=== PATIENT | female | born 1970 | race Caucasian/White ===

== ENCOUNTER → 2017-06-27 | Outpatient (CLI) | payer OTHER ==
[~2017-06-27] MED LIST: ALPR-475 PO; OMEP-110 PO; SUCR1TAB PO
[2017-06-27 14:57] LABS: HEMATOCRIT 38.3 % (34.6-47.8); WHITE BLOOD COUNT 9.3 x10^3/uL (3.4-10)
[2017-06-27 15:15] LABS: ASPARTATE AMINO TRANSFERASE 16 U/L (15-37); BLOOD UREA NITROGEN 13 mg/dL (7-18)
== END | disposition home or self-care (01) ==
LOC: STAR 13:44
PROVIDERS: ATTEND Surgery
DX: Z01.818 Encounter for other preprocedural examination (principal); M51.34 Other intervertebral disc degeneration, thoracic region; R94.31 Abnormal electrocardiogram [ECG] [EKG]; K80.20 Calculus of gallbladder without cholecystitis without obstruction; Z90.49 Acquired absence of other specified parts of digestive tract
CPT/HCPCS: 36415; 71020; 80053; 85025; 93005

== ENCOUNTER 2017-07-04 09:07 | Day surgery (SDC) | payer OTHER ==
[~2017-07-04] VITALS: Ht 162.6 cm; Wt 84.8 kg
[~2017-07-04 09:07] MED LIST changes: +BUPIVACAINE/PF 0.5% ONE; +DEXAMETHASONE 4 MG/ML, 1ML ONE; +FENTANYL PF 100 MCG/2ML ONE; +GLYCOPYRROLATE 0.4 MG/2 ML, 2ML ONE; +MIDAZOLAM 1 MG/ML, 2ML ONE; +NEOSTIGMINE 1 MG/ML, 10ML ONE; +ONDANSETRON 2MG/ML, 2ML ONE; +PROPOFOL 10 MG/ML, 20ML ONE; +ROCURONIUM 10 MG/ML,10ML ONE
[2017-07-04 09:34] VITALS: BP 130/85
[2017-07-04] MEDS ORDERED: LACTATED RINGERS 1,000 ML IV SCH (09:39)
[2017-07-04] MEDS ORDERED: CEFOTETAN 1 GM ONE (10:27)
[2017-07-04] MEDS ORDERED: LABETALOL 5MG/ML, 20ML IV PRN (10:30)
[2017-07-04] MEDS ORDERED: hydrALAzine 20 MG/ML, 1ML IV PRN (10:30)
[2017-07-04] MEDS ORDERED: PROMETHAZINE 25 MG/ML, 1ML IV PRN (10:30)
[2017-07-04] MEDS ORDERED: ACETAMINOPHEN 325 MG TABLET PO PRN (10:30)
[2017-07-04] MEDS ORDERED: ONDANSETRON 2MG/ML, 2ML IVPush PRN (10:30)
[2017-07-04] MEDS ORDERED: FENTANYL PF 100 MCG/2ML ONE (11:16)
[2017-07-04] MEDS ORDERED: MIDAZOLAM 1 MG/ML, 2ML ONE ×2 (11:16→11:28)
[2017-07-04] MEDS: FENTANYL PF 100 MCG/2ML IV PRN ×2 (11:18→11:20)
[2017-07-04] MEDS: MIDAZOLAM 1 MG/ML, 2ML IV PRN ×4 (11:20→13:10)
[2017-07-04] MEDS ORDERED: ACETAMINOPHEN 650 MG/20.3 ML UDC ONE (11:23)
[2017-07-04] MEDS ORDERED: HYDROmorphone 2 MG/ML, 1ML ONE ×2 (11:23→12:57)
[2017-07-04] MEDS ORDERED: OXYcodone 5 MG/5 ML ORAL.SOL UDC ONE (11:24)
[2017-07-04] MEDS: HYDROmorphone 1 MG/ML, 1ML IV PRN ×6 (11:26→13:15)
[2017-07-04] MEDS: OXYcodone 5 MG/5 ML ORAL.SOL UDC PO PRN ×2 (11:31→15:31)
[2017-07-04] MEDS ORDERED: MEPERIDINE/PF 50 MG/ML ONE (11:37)
[2017-07-04] MEDS: MEPERIDINE/PF 25MG/0.5ML IVPush PRN ×2 (11:38→11:52)
[2017-07-04] MEDS ORDERED: PROMETHAZINE 25 MG/ML, 1ML ONE (12:57)
== END 2017-07-04 16:00 | disposition home or self-care (01) ==
LOC: OUT 09:07
PROVIDERS: ATTEND Surgery
DX: K80.12 Calculus of gallbladder with acute and chronic cholecystitis without obstruction (principal); K21.9 Gastro-esophageal reflux disease without esophagitis; F41.9 Anxiety disorder, unspecified; Z88.8 Allergy status to other drugs, medicaments and biological substances; Z79.899 Other long term (current) drug therapy; Z90.710 Acquired absence of both cervix and uterus; Z98.890 Other specified postprocedural states; Z87.891 Personal history of nicotine dependence
CPT/HCPCS: 47562; 88304; J1100; J1170; J2175; J2250; J2405; J2550; J2704; J2710; J3010; J3490; J7120; S0074

== ENCOUNTER → 2020-05-08 | Outpatient (CLI) | payer MEDICAID ==
[~2020-05-08] MED LIST changes: -ALPR-475 PO; +ALPR0.5T7 PO; -BUPIVACAINE/PF 0.5% ONE; -DEXAMETHASONE 4 MG/ML, 1ML ONE; -FENTANYL PF 100 MCG/2ML ONE; -GLYCOPYRROLATE 0.4 MG/2 ML, 2ML ONE; -MIDAZOLAM 1 MG/ML, 2ML ONE; -NEOSTIGMINE 1 MG/ML, 10ML ONE; -ONDANSETRON 2MG/ML, 2ML ONE; -PROPOFOL 10 MG/ML, 20ML ONE; -ROCURONIUM 10 MG/ML,10ML ONE
== END | disposition home or self-care (01) ==
LOC: CLISVCS 10:14
PROVIDERS: ATTEND Nurse Practitioner Family
DX: J20.9 Acute bronchitis, unspecified (principal)
CPT/HCPCS: 71046

== ENCOUNTER 2020-05-14 13:00 | Inpatient (IN) | payer MEDICAID ==
[~2020-05-14] VITALS: Ht 160 cm; Wt 100.3 kg
--- NOTE | 2020-05-14 13:07 | NUR ---
PT BIB EMS FOR UPPER GI PAIN. LASTED 3 DAYS. SYMPTOMS WORSENED AFTER DRINKING CIDER. DENIES N/V. NO BLOOD IN STOOL OR EMESIS. PAIN RADIATED TO BACK AND CHEST. NO COUGH, SOB. PT HAS ANXIETY AND SLIGHT DISTRESS. GIVEN 200 FENTANYL BY EMS
[2020-05-14] MEDS ORDERED: MORPHINE SULFATE 4 MG/ML, 1ML ONE ×2 (13:15→14:24)
[2020-05-14] MEDS: MORPHINE SULFATE 4 MG/ML, 1ML IVPush PRN ×2 (13:17→14:26)
[2020-05-14 13:24] LABS: BASOPHILS % (AUTO) 1 % (0-1); EOSINOPHILS % (AUTO) 1 % (1-7); LYMPHOCYTES % (AUTO) 36 % (22-44); MEAN CORPUSCULAR HEMOGLOBIN 30.2 pg (27.0-34.8); MEAN CORPUSCULAR HGB CONC 33.1 g/dL (32.4-35.8); MEAN PLATELET VOLUME 8.2 fL (7.4-10.4); MONOCYTES % (AUTO) 6 % (2-9); NEUTROPHILS % (AUTO) 57 % (42-75); PLATELET COUNT 373 x10^3/uL (130-400); RED BLOOD COUNT 4.62 x10^6/uL (3.82-5.3); RED CELL DISTRIBUTION WIDTH 12.9 % (9.6-15.2)
[2020-05-14 13:25] LABS: MD NO
[2020-05-14] MEDS ORDERED: SODIUM CHLORIDE FLUSH 10ML SYR IVF ONE (13:30)
[2020-05-14] MEDS ORDERED: SODIUM CHLORIDE 0.9% 1,000 ML IV ONE (13:30)
[2020-05-14] MEDS ORDERED: PLEASE ENTER HEIGHT AND WEIGHT MC SCH (13:30)
[2020-05-14 13:32] LABS: ALANINE AMINOTRANSFERASE 232 U/L (12-78); ALBUMIN 4.1 g/dL (3.4-5.0); ANION GAP 11 mmol/L (5-15); CALCIUM 9.4 mg/dL (8.5-10.1); CHLORIDE 106 mmol/L (98-107)
[2020-05-14 13:35] LABS: ALKALINE PHOSPHATASE 141 U/L (45-117); BILIRUBIN,TOTAL 0.7 mg/dL (0.2-1.0); TOTAL PROTEIN 7.2 g/dL (6.4-8.2)
[2020-05-14] MEDS ORDERED: ONDANSETRON 2MG/ML, 2ML ONE (13:38)
--- NOTE | 2020-05-14 13:57 | NUR ---
PT TO CT
[2020-05-14] MEDS ORDERED: ONDANSETRON 2MG/ML, 2ML IVPush ONE (14:00)
[2020-05-14] MEDS ORDERED: OMNIPAQUE 350 MG/ML, 100ML BOTTLE ONE (14:00)
--- NOTE | 2020-05-14 14:29 | NUR ---
BREAK RN: DR CARRASCO IN ROOM UPDATING PATIENT.
--- NOTE | 2020-05-14 14:37 | NUR ---
REPORT GIVE TO KATHYA PIMENTEL
[2020-05-14] MEDS ORDERED: HYDROmorphone 1 MG/ML, 1ML INJ ONE (14:49)
[2020-05-14 14:56] LABS: CHOL/HDL RATIO 2.4; LDL/HDL RATIO 0.8 (0.5-3.0)
[2020-05-14] MEDS ORDERED: HYDROmorphone 2 MG/ML, 1ML IVPush PRN (15:00)
[2020-05-14] MEDS ORDERED: CARV3.122 PO (15:04)
[2020-05-14 15:32] VITALS: BP 132/83
[2020-05-14] MEDS: HEPARIN 5,000 UNITS/ML, 1ML SQ SCH (16:30)
[2020-05-14] MEDS ORDERED: hydrALAzine 20 MG/ML, 1ML IVPush PRN (16:30)
[2020-05-14] MEDS: LACTATED RINGERS 1,000 ML IV SCH ×3 (16:30→20:47)
[2020-05-14] MEDS ORDERED: LABETALOL 5MG/ML, 20ML IVPush PRN (16:30)
[2020-05-14] MEDS: morphine SULFATE 10 MG/ML, 1ML IVPush PRN ×3 (16:40→20:07)
[2020-05-14 16:55] VITALS: BP 143/83
[2020-05-14] MEDS: ONDANSETRON 2MG/ML, 2ML IVPush PRN (17:54)
[2020-05-14 18:23] LABS: AMPHETAMINE SCREEN, URINE Negative (Negative); BARBITURATE SCREEN, URINE Negative (Negative); BENZODIAZEPINE SCREEN, URINE Positive (Negative); CANNABINOID SCREEN, URINE Positive (Negative); COCAINE SCREEN, URINE Negative (Negative); METHADONE SCREEN, URINE Negative (Negative); OPIATE SCREEN, URINE Positive (Negative)
[2020-05-14] MEDS ORDERED: CALCIUM CARBONATE 500 MG TAB.CHEW ONE (18:26)
[2020-05-14] MEDS: CALCIUM CARBONATE 500 MG TAB.CHEW PO PRN (18:28)
[2020-05-14] MEDS: OXYcodone IR 5MG TABLET PO PRN ×2 (18:43→23:04)
[2020-05-14 19:56] VITALS: BP 122/77
[2020-05-14 20:41] VITALS: BP 145/86
[2020-05-14 20:45] VITALS: BP 127/84
[2020-05-14] MEDS ORDERED: HYDR25CA94 PO (21:55)
[2020-05-14] MEDS ORDERED: ATOR20TA86 PO (21:55)
[2020-05-14] MEDS ORDERED: CEFU500T50 PO (21:55)
[2020-05-14] MEDS ORDERED: CARV3.12 PO (21:55)
[2020-05-14] MEDS ORDERED: GUAI5LIQ9 PO (21:55)
[2020-05-14] MEDS ORDERED: AZIT250T89 PO (21:55)
[2020-05-15] MEDS: morphine SULFATE 10 MG/ML, 1ML IVPush PRN ×3 (00:22→07:45)
[2020-05-15] MEDS: HEPARIN 5,000 UNITS/ML, 1ML SQ SCH ×3 (00:30→16:40)
[2020-05-15 00:34] VITALS: BP 127/73
[2020-05-15] MEDS: LACTATED RINGERS 1,000 ML IV SCH ×4 (03:10→22:25)
[2020-05-15] MEDS: ONDANSETRON 2MG/ML, 2ML IVPush PRN ×3 (03:36→18:13)
[2020-05-15 06:01] LABS: BASOPHILS % (AUTO) 1 % (0-1); EOSINOPHILS % (AUTO) 1 % (1-7); LYMPHOCYTES % (AUTO) 39 % (22-44); MEAN CORPUSCULAR HEMOGLOBIN 30.1 pg (27.0-34.8); MEAN CORPUSCULAR HGB CONC 32.8 g/dL (32.4-35.8); MEAN PLATELET VOLUME 8.6 fL (7.4-10.4); MONOCYTES % (AUTO) 7 % (2-9); NEUTROPHILS % (AUTO) 53 % (42-75); PLATELET COUNT 349 x10^3/uL (130-400); RED BLOOD COUNT 4.28 x10^6/uL (3.82-5.3); RED CELL DISTRIBUTION WIDTH 12.9 % (9.6-15.2)
[2020-05-15 06:14] LABS: ALBUMIN 3.7 g/dL (3.4-5.0); CALCIUM 9.2 mg/dL (8.5-10.1); CHLORIDE 106 mmol/L (98-107)
[2020-05-15 06:20] LABS: ALANINE AMINOTRANSFERASE 563 U/L (12-78); ALKALINE PHOSPHATASE 188 U/L (45-117); ANION GAP 4 mmol/L (5-15); CREATININE 1.02 mg/dL (0.55-1.02); TOTAL PROTEIN 6.5 g/dL (6.4-8.2)
[2020-05-15 06:52] LABS: MD SCAN
[2020-05-15] MEDS: PROMETHAZINE 25 MG/ML, 1ML IM PRN ×3 (07:53→20:26)
[2020-05-15 07:56] VITALS: BP 136/84
[2020-05-15] MEDS: HYDROmorphone 1 MG/ML, 1ML INJ IV PRN ×3 (10:09→20:27)
[2020-05-15] MEDS: FOLIC ACID 1 MG TABLET PO SCH (10:12)
[2020-05-15] MEDS: THIAMINE 100MG TABLET PO SCH (10:17)
[2020-05-15] MEDS: MULTIVITAMIN 1 TABLET PO SCH (10:17)
[2020-05-15 12:37] VITALS: BP 138/86
[2020-05-15] MEDS: OXYcodone IR 5MG TABLET PO PRN ×3 (12:53→23:20)
[2020-05-15] MEDS ORDERED: PANTOPRAZOLE 40 MG IV IVPush ONE (18:30)
[2020-05-15 18:37] VITALS: BP 142/89
[2020-05-16 00:19] VITALS: BP 99/63
[2020-05-16] MEDS: HYDROmorphone 1 MG/ML, 1ML INJ IV PRN ×4 (01:15→23:34)
[2020-05-16] MEDS: ONDANSETRON 2MG/ML, 2ML IVPush PRN ×3 (02:52→19:53)
[2020-05-16] MEDS: LACTATED RINGERS 1,000 ML IV SCH ×3 (04:48→23:36)
[2020-05-16] MEDS: OXYcodone IR 5MG TABLET PO PRN ×3 (04:49→21:15)
[2020-05-16 05:05] LABS: BASOPHILS % (AUTO) 0 % (0-1); EOSINOPHILS % (AUTO) 1 % (1-7); LYMPHOCYTES % (AUTO) 38 % (22-44); MEAN CORPUSCULAR HEMOGLOBIN 30.4 pg (27.0-34.8); MEAN CORPUSCULAR HGB CONC 32.9 g/dL (32.4-35.8); MEAN PLATELET VOLUME 8.2 fL (7.4-10.4); MONOCYTES % (AUTO) 7 % (2-9); NEUTROPHILS % (AUTO) 54 % (42-75); PLATELET COUNT 294 x10^3/uL (130-400); RED BLOOD COUNT 3.77 x10^6/uL (3.82-5.3); RED CELL DISTRIBUTION WIDTH 13.1 % (9.6-15.2)
[2020-05-16 05:10] LABS: ALANINE AMINOTRANSFERASE 403 U/L (12-78); ALBUMIN 3.3 g/dL (3.4-5.0); ANION GAP 4 mmol/L (5-15); CALCIUM 8.5 mg/dL (8.5-10.1); CHLORIDE 102 mmol/L (98-107); CREATININE 0.94 mg/dL (0.55-1.02)
[2020-05-16 05:12] LABS: ALKALINE PHOSPHATASE 173 U/L (45-117)
[2020-05-16 05:13] LABS: MD NO
[2020-05-16 05:22] VITALS: BP 122/69
[2020-05-16] MEDS: PROMETHAZINE 25 MG/ML, 1ML IM PRN ×2 (05:30→19:59)
[2020-05-16] MEDS: PANTOPRAZOLE 40 MG IV IVPush SCH (08:11)
[2020-05-16 08:15] VITALS: BP 147/82
[2020-05-16] MEDS: THIAMINE 100MG TABLET PO SCH (09:00)
[2020-05-16] MEDS: MULTIVITAMIN 1 TABLET PO SCH (09:00)
[2020-05-16] MEDS: FOLIC ACID 1 MG TABLET PO SCH (09:00)
[2020-05-16] MEDS ORDERED: CHLORHEXIDINE 15 ML UDC MM ONE (11:30)
[2020-05-16] MEDS ORDERED: FENTANYL PF 100 MCG/2ML ONE ×2 (12:26→13:54)
[2020-05-16] MEDS ORDERED: MIDAZOLAM 1 MG/ML, 2ML ONE (12:26)
[2020-05-16] MEDS ORDERED: PROPOFOL 10 MG/ML, 20ML ONE (12:41)
[2020-05-16] MEDS ORDERED: SUCCINYLCHOLINE 20 MG/ML, 10ML ONE (12:41)
[2020-05-16] MEDS ORDERED: EPHEDRINE 50 MG/ML, 1ML IVPush PRN (13:30)
[2020-05-16] MEDS ORDERED: PROMETHAZINE 12.5 MG SUPP PR PRN (13:30)
[2020-05-16] MEDS ORDERED: ALBUTEROL SULFATE 2.5 MG/3 ML NPPB PRN (13:30)
[2020-05-16] MEDS ORDERED: DIPHENHYDRAMINE 50 MG/ML, 1ML IVPush PRN ×2 (13:30)
[2020-05-16] MEDS ORDERED: MIDAZOLAM 1 MG/ML, 2ML IV PRN (13:30)
[2020-05-16] MEDS ORDERED: OXYcodone 5 MG/5 ML ORAL.SOL UDC PO PRN (13:30)
[2020-05-16] MEDS ORDERED: LABETALOL 5MG/ML, 20ML IV PRN (13:30)
[2020-05-16] MEDS ORDERED: PROMETHAZINE 25 MG/ML, 1ML IVPush PRN (13:30)
[2020-05-16] MEDS ORDERED: DIAZEPAM 5 MG/ML, 2ML IVPush PRN (13:30)
[2020-05-16] MEDS ORDERED: MEPERIDINE/PF 25MG/0.5ML IVPush PRN (13:30)
[2020-05-16] MEDS ORDERED: hydrALAzine 20 MG/ML, 1ML IV PRN (13:30)
[2020-05-16] MEDS ORDERED: ONDANSETRON 2MG/ML, 2ML IVPush PRN (13:30)
[2020-05-16] MEDS ORDERED: HYDROmorphone 1 MG/ML, 1ML INJ ONE (13:55)
[2020-05-16] MEDS: FENTANYL PF 100 MCG/2ML IV PRN ×3 (13:56→14:18)
[2020-05-16] MEDS ORDERED: OMNIPAQUE 350 MG/ML, 50 ML BOTTLE ONE (14:00)
[2020-05-16] MEDS: HYDROmorphone 1 MG/ML, 1ML INJ IVPush PRN ×2 (14:18→14:36)
[2020-05-16] MEDS ORDERED: DIAZ10TA4 PO (16:40)
[2020-05-16 18:46] VITALS: BP 134/86
[2020-05-16] MEDS: CALCIUM CARBONATE 500 MG TAB.CHEW PO PRN ×2 (19:51→23:34)
[2020-05-16] MEDS: DIAZEPAM 10 MG TABLET PO PRN (19:51)
[2020-05-17 00:11] VITALS: BP 112/71
[2020-05-17] MEDS: HYDROmorphone 1 MG/ML, 1ML INJ IV PRN ×4 (04:15→18:15)
[2020-05-17] MEDS: OXYcodone IR 5MG TABLET PO PRN ×2 (05:15→12:00)
[2020-05-17] MEDS: CALCIUM CARBONATE 500 MG TAB.CHEW PO PRN (05:15)
[2020-05-17] MEDS: LACTATED RINGERS 1,000 ML IV SCH ×3 (05:18→21:26)
[2020-05-17 05:24] LABS: BASOPHILS % (AUTO) 1 % (0-1); EOSINOPHILS % (AUTO) 0 % (1-7); LYMPHOCYTES % (AUTO) 18 % (22-44); MEAN CORPUSCULAR HEMOGLOBIN 30.3 pg (27.0-34.8); MEAN CORPUSCULAR HGB CONC 32.9 g/dL (32.4-35.8); MEAN PLATELET VOLUME 8.4 fL (7.4-10.4); MONOCYTES % (AUTO) 7 % (2-9); NEUTROPHILS % (AUTO) 76 % (42-75); PLATELET COUNT 305 x10^3/uL (130-400); RED BLOOD COUNT 3.74 x10^6/uL (3.82-5.3); RED CELL DISTRIBUTION WIDTH 12.8 % (9.6-15.2)
[2020-05-17 05:30] LABS: CHLORIDE 104 mmol/L (98-107)
[2020-05-17 05:38] LABS: ALANINE AMINOTRANSFERASE 278 U/L (12-78); ALBUMIN 3.4 g/dL (3.4-5.0); ALKALINE PHOSPHATASE 182 U/L (45-117); ANION GAP 7 mmol/L (5-15); BILIRUBIN,TOTAL 0.8 mg/dL (0.2-1.0); CALCIUM 9.1 mg/dL (8.5-10.1); CREATININE 0.96 mg/dL (0.55-1.02); TOTAL PROTEIN 6.2 g/dL (6.4-8.2)
[2020-05-17 06:12] LABS: MD SCAN
[2020-05-17 06:49] VITALS: BP 120/78
[2020-05-17] MEDS: PANTOPRAZOLE 40 MG IV IVPush SCH (09:02)
[2020-05-17] MEDS: THIAMINE 100MG TABLET PO SCH (09:02)
[2020-05-17] MEDS: FOLIC ACID 1 MG TABLET PO SCH (09:02)
[2020-05-17] MEDS: MULTIVITAMIN 1 TABLET PO SCH (09:02)
[2020-05-17] MEDS: DRONABINOL 5 MG CAPSULE PO SCH ×2 (09:02→21:26)
[2020-05-17] MEDS: DIAZEPAM 10 MG TABLET PO PRN (10:32)
[2020-05-17 13:57] VITALS: BP 138/84
[2020-05-17] MEDS ORDERED: POLYETHYLENE GLYCOL 17 GM PACKET NG ONE (16:30)
[2020-05-17 18:52] VITALS: BP 111/74
[2020-05-18 00:11] VITALS: BP 134/85
[2020-05-18] MEDS: HYDROmorphone 1 MG/ML, 1ML INJ IV PRN ×5 (00:16→22:07)
[2020-05-18 01:24] VITALS: BP 120/75
[2020-05-18] MEDS: DIAZEPAM 10 MG TABLET PO PRN ×2 (01:28→14:33)
[2020-05-18] MEDS: IBUPROFEN 600 MG TABLET PO PRN ×2 (02:07→14:21)
[2020-05-18] MEDS: OXYcodone IR 5MG TABLET PO PRN (03:38)
[2020-05-18] MEDS: LACTATED RINGERS 1,000 ML IV SCH (05:39)
[2020-05-18 06:01] VITALS: BP 91/63
[2020-05-18] MEDS ORDERED: ALBU8.5H8 PO (07:01)
[2020-05-18 08:21] LABS: ALBUMIN 3.1 g/dL (3.4-5.0); ANION GAP 7 mmol/L (5-15); CALCIUM 8.6 mg/dL (8.5-10.1); CHLORIDE 102 mmol/L (98-107); MEAN CORPUSCULAR HEMOGLOBIN 30.2 pg (27.0-34.8); MEAN CORPUSCULAR HGB CONC 32.8 g/dL (32.4-35.8); PLATELET COUNT 283 x10^3/uL (130-400); RED BLOOD COUNT 3.82 x10^6/uL (3.82-5.3)
[2020-05-18 08:26] LABS: ALANINE AMINOTRANSFERASE 158 U/L (12-78); ALKALINE PHOSPHATASE 132 U/L (45-117); BILIRUBIN,TOTAL 1.2 mg/dL (0.2-1.0); CREATININE 0.97 mg/dL (0.55-1.02); TOTAL PROTEIN 6.1 g/dL (6.4-8.2)
[2020-05-18] MEDS: PANTOPRAZOLE 40 MG IV IVPush SCH (08:34)
[2020-05-18] MEDS: DRONABINOL 5 MG CAPSULE PO SCH ×2 (08:34→21:10)
[2020-05-18] MEDS: THIAMINE 100MG TABLET PO SCH (08:34)
[2020-05-18] MEDS: MULTIVITAMIN 1 TABLET PO SCH (08:34)
[2020-05-18] MEDS: FOLIC ACID 1 MG TABLET PO SCH (08:34)
[2020-05-18 08:43] LABS: MD YES
[2020-05-18 08:44] LABS: BAND#(MANUAL) 0.76 x10^3/uL; BANDS%(MANUAL) 3 % (0-7); LYMPH#(MANUAL) 2.54 x10^3/uL (1-3.4); LYMPHS% (MANUAL) 10 % (22-44); MONOS#(MANUAL) 1.27 x10^3/uL (0.3-2.7); MONOS% (MANUAL) 5 % (2-9); SEG#(MANUAL) 20.83 x10^3/uL (1.8-6.8); SEGS% (MANUAL) 82 % (42-75)
[2020-05-18 08:45] LABS: <PLATELET ESTIMATE> ADEQUATE; <PLT MORPHOLOGY> NORMAL PLT MORPH; <RBC MORPHOLOGY> NORMAL
[2020-05-18 14:25] VITALS: BP 115/70
[2020-05-18] MEDS: CALCIUM CARBONATE 500 MG TAB.CHEW PO PRN (17:00)
[2020-05-18 18:53] VITALS: BP 101/68
[2020-05-18 20:27] LABS: MICROSCOPIC AUTO
[2020-05-19 02:41] VITALS: BP 133/82
[2020-05-19] MEDS: HYDROmorphone 1 MG/ML, 1ML INJ IV PRN ×4 (02:57→22:08)
[2020-05-19 07:13] VITALS: BP 113/60
[2020-05-19 08:06] VITALS: BP 130/80
[2020-05-19] MEDS: SODIUM CHLORIDE 0.9% 1,000 ML IV SCH ×3 (08:20→22:08)
[2020-05-19] MEDS: IBUPROFEN 600 MG TABLET PO PRN (08:20)
[2020-05-19] MEDS ORDERED: PIPERACILLIN/TAZO/PMX 3.375GM 50 ML IV SCH (08:30)
[2020-05-19] MEDS ORDERED: ACETAMINOPHEN 325 MG TABLET PO PRN (08:30)
[2020-05-19 08:50] LABS: MEAN CORPUSCULAR HEMOGLOBIN 30.4 pg (27.0-34.8); MEAN CORPUSCULAR HGB CONC 32.9 g/dL (32.4-35.8); MEAN PLATELET VOLUME 8.3 fL (7.4-10.4); PLATELET COUNT 297 x10^3/uL (130-400); RED BLOOD COUNT 3.65 x10^6/uL (3.82-5.3); RED CELL DISTRIBUTION WIDTH 13.1 % (9.6-15.2)
[2020-05-19 08:57] LABS: ALBUMIN 2.8 g/dL (3.4-5.0); ANION GAP 8 mmol/L (5-15); CALCIUM 8.4 mg/dL (8.5-10.1); CHLORIDE 100 mmol/L (98-107)
[2020-05-19 09:00] LABS: ALANINE AMINOTRANSFERASE 104 U/L (12-78); ALKALINE PHOSPHATASE 124 U/L (45-117); BILIRUBIN,TOTAL 0.9 mg/dL (0.2-1.0); CREATININE 0.91 mg/dL (0.55-1.02); TOTAL PROTEIN 6.3 g/dL (6.4-8.2)
[2020-05-19] MEDS: MULTIVITAMIN 1 TABLET PO SCH (09:02)
[2020-05-19] MEDS: PANTOPRAZOLE 40 MG IV IVPush SCH (09:02)
[2020-05-19] MEDS: DRONABINOL 5 MG CAPSULE PO SCH ×2 (09:03→19:59)
[2020-05-19] MEDS: FOLIC ACID 1 MG TABLET PO SCH (09:03)
[2020-05-19] MEDS: THIAMINE 100MG TABLET PO SCH (09:03)
[2020-05-19] MEDS: OXYcodone IR 5MG TABLET PO PRN ×2 (09:13→16:53)
[2020-05-19 09:20] LABS: MD YES
[2020-05-19 09:22] LABS: <PLATELET ESTIMATE> ADEQUATE; <PLT MORPHOLOGY> NORMAL PLT MORPH; <RBC MORPHOLOGY> NORMAL; BAND#(MANUAL) 0.23 x10^3/uL; BANDS%(MANUAL) 1 % (0-7); LYMPHS% (MANUAL) 8 % (22-44); MONOS#(MANUAL) 0.45 x10^3/uL (0.3-2.7); MONOS% (MANUAL) 2 % (2-9); REACTIVE LYMPHS # (MANUAL) 0.45 x10^3/uL (0-0); REACTIVE LYMPHS % (MANUAL) 2 % (0-0); SEG#(MANUAL) 19.58 x10^3/uL (1.8-6.8); SEGS% (MANUAL) 87 % (42-75)
[2020-05-19 12:07] VITALS: BP 129/75
[2020-05-19] MEDS: PIPERACILLIN/TAZO/PMX 3.375GM 50 ML IV SCH ×2 (14:14→19:59)
[2020-05-19] MEDS: DIAZEPAM 10 MG TABLET PO PRN (14:14)
[2020-05-19 18:19] VITALS: BP 110/79
[2020-05-20 01:00] VITALS: BP 95/64
[2020-05-20] MEDS: PIPERACILLIN/TAZO/PMX 3.375GM 50 ML IV SCH ×4 (02:10→20:22)
[2020-05-20] MEDS: HYDROmorphone 1 MG/ML, 1ML INJ IV PRN ×4 (04:51→18:24)
[2020-05-20] MEDS: PANTOPRAZOLE 40MG TABLET PO SCH (05:03)
[2020-05-20 05:19] LABS: ALBUMIN 2.4 g/dL (3.4-5.0); ANION GAP 4 mmol/L (5-15); CALCIUM 8.2 mg/dL (8.5-10.1); CHLORIDE 105 mmol/L (98-107)
[2020-05-20 05:23] LABS: ALANINE AMINOTRANSFERASE 73 U/L (12-78); ALKALINE PHOSPHATASE 111 U/L (45-117); BILIRUBIN,TOTAL 0.7 mg/dL (0.2-1.0); TOTAL PROTEIN 5.9 g/dL (6.4-8.2)
[2020-05-20 05:50] LABS: MEAN CORPUSCULAR HEMOGLOBIN 30.5 pg (27.0-34.8); MEAN CORPUSCULAR HGB CONC 33.3 g/dL (32.4-35.8); MEAN PLATELET VOLUME 8.6 fL (7.4-10.4); PLATELET COUNT 301 x10^3/uL (130-400); RED BLOOD COUNT 3.56 x10^6/uL (3.82-5.3); RED CELL DISTRIBUTION WIDTH 13.2 % (9.6-15.2)
[2020-05-20 06:54] LABS: MD YES
[2020-05-20 06:55] LABS: BAND#(MANUAL) 0.37 x10^3/uL; BANDS%(MANUAL) 2 % (0-7); EOS#(MANUAL) 0.56 x10^3/uL (0.0-0.4); EOS% (MANUAL) 3 % (1-7); LYMPH#(MANUAL) 2.22 x10^3/uL (1-3.4); LYMPHS% (MANUAL) 12 % (22-44); MONOS#(MANUAL) 0.56 x10^3/uL (0.3-2.7); MONOS% (MANUAL) 3 % (2-9); MYELOCYTES# (MANUAL) 0.19 x10^3/uL (0-0); MYELOCYTES% (MANUAL) 1 % (0-0); SEG#(MANUAL) 14.62 x10^3/uL (1.8-6.8); SEGS% (MANUAL) 79 % (42-75)
[2020-05-20 06:56] LABS: <PLATELET ESTIMATE> ADEQUATE; <PLT MORPHOLOGY> NORMAL PLT MORPH; <RBC MORPHOLOGY> NORMAL
[2020-05-20 07:18] VITALS: BP 102/61
[2020-05-20] MEDS: FOLIC ACID 1 MG TABLET PO SCH (08:33)
[2020-05-20] MEDS: MULTIVITAMIN 1 TABLET PO SCH (08:33)
[2020-05-20] MEDS: IBUPROFEN 600 MG TABLET PO PRN (08:33)
[2020-05-20] MEDS: DRONABINOL 5 MG CAPSULE PO SCH ×2 (08:34→20:22)
[2020-05-20] MEDS: THIAMINE 100MG TABLET PO SCH (08:34)
[2020-05-20] MEDS: SODIUM CHLORIDE 0.9% 1,000 ML IV SCH (11:24)
[2020-05-20 13:07] VITALS: BP 128/84
[2020-05-20 20:11] VITALS: BP 110/74
[2020-05-20] MEDS: CALCIUM CARBONATE 500 MG TAB.CHEW PO PRN (20:22)
[2020-05-20] MEDS: DOCUSATE 100 MG CAPSULE PO SCH (20:22)
[2020-05-20] MEDS: DIAZEPAM 10 MG TABLET PO PRN (23:15)
[2020-05-21] MEDS: HYDROmorphone 1 MG/ML, 1ML INJ IV PRN ×5 (00:23→19:01)
[2020-05-21] MEDS: PIPERACILLIN/TAZO/PMX 3.375GM 50 ML IV SCH ×4 (01:50→20:22)
[2020-05-21 05:40] LABS: ALANINE AMINOTRANSFERASE 57 U/L (12-78); ALBUMIN 2.5 g/dL (3.4-5.0); ANION GAP 7 mmol/L (5-15); CALCIUM 8.4 mg/dL (8.5-10.1); CHLORIDE 104 mmol/L (98-107)
[2020-05-21 05:43] LABS: ALKALINE PHOSPHATASE 114 U/L (45-117); BILIRUBIN,TOTAL 0.8 mg/dL (0.2-1.0); CREATININE 0.93 mg/dL (0.55-1.02); TOTAL PROTEIN 6.4 g/dL (6.4-8.2)
[2020-05-21 05:44] VITALS: BP 107/72
[2020-05-21] MEDS: PANTOPRAZOLE 40MG TABLET PO SCH (06:41)
[2020-05-21 06:46] LABS: BASOPHILS % (AUTO) 0 % (0-1); EOSINOPHILS % (AUTO) 1 % (1-7); LYMPHOCYTES % (AUTO) 13 % (22-44); MEAN CORPUSCULAR HEMOGLOBIN 30.2 pg (27.0-34.8); MEAN CORPUSCULAR HGB CONC 32.8 g/dL (32.4-35.8); MEAN PLATELET VOLUME 7.8 fL (7.4-10.4); MONOCYTES % (AUTO) 8 % (2-9); NEUTROPHILS % (AUTO) 77 % (42-75); PLATELET COUNT 349 x10^3/uL (130-400); RED BLOOD COUNT 3.46 x10^6/uL (3.82-5.3); RED CELL DISTRIBUTION WIDTH 13.1 % (9.6-15.2)
[2020-05-21 07:01] VITALS: BP 129/78
[2020-05-21 07:14] LABS: MD SCAN
[2020-05-21] MEDS: FOLIC ACID 1 MG TABLET PO SCH (08:27)
[2020-05-21] MEDS: DOCUSATE 100 MG CAPSULE PO SCH ×2 (08:27→20:22)
[2020-05-21] MEDS: MULTIVITAMIN 1 TABLET PO SCH (08:27)
[2020-05-21] MEDS: THIAMINE 100MG TABLET PO SCH (08:27)
[2020-05-21] MEDS: DRONABINOL 5 MG CAPSULE PO SCH ×2 (08:27→20:22)
[2020-05-21] MEDS: DIAZEPAM 10 MG TABLET PO PRN (12:14)
[2020-05-21 14:36] VITALS: BP 113/73
[2020-05-21 18:32] VITALS: BP 115/70
[2020-05-21] MEDS: IBUPROFEN 600 MG TABLET PO PRN (18:40)
[2020-05-21] MEDS: OXYcodone IR 5MG TABLET PO PRN (22:56)
[2020-05-22] MEDS: PIPERACILLIN/TAZO/PMX 3.375GM 50 ML IV SCH ×2 (02:29→08:31)
[2020-05-22] MEDS: OXYcodone IR 5MG TABLET PO PRN ×2 (02:30→08:32)
[2020-05-22 02:37] VITALS: BP 104/71
[2020-05-22 04:11] LABS: MEAN CORPUSCULAR HGB CONC 33.1 g/dL (32.4-35.8); MEAN PLATELET VOLUME 7.7 fL (7.4-10.4); PLATELET COUNT 353 x10^3/uL (130-400); RED BLOOD COUNT 3.38 x10^6/uL (3.82-5.3); RED CELL DISTRIBUTION WIDTH 13.2 % (9.6-15.2)
[2020-05-22 04:14] LABS: CHLORIDE 105 mmol/L (98-107)
[2020-05-22 04:19] LABS: ALANINE AMINOTRANSFERASE 40 U/L (12-78); ALBUMIN 2.5 g/dL (3.4-5.0); ALKALINE PHOSPHATASE 92 U/L (45-117); ANION GAP 7 mmol/L (5-15); BILIRUBIN,TOTAL 0.5 mg/dL (0.2-1.0); CALCIUM 8.9 mg/dL (8.5-10.1); CREATININE 0.96 mg/dL (0.55-1.02); TOTAL PROTEIN 6.2 g/dL (6.4-8.2)
[2020-05-22 04:49] LABS: MD YES
[2020-05-22 04:50] LABS: BAND#(MANUAL) 0.15 x10^3/uL; BANDS%(MANUAL) 1 % (0-7); EOS#(MANUAL) 0.15 x10^3/uL (0.0-0.4); EOS% (MANUAL) 1 % (1-7); LYMPH#(MANUAL) 2.55 x10^3/uL (1-3.4); LYMPHS% (MANUAL) 17 % (22-44); MONOS#(MANUAL) 1.05 x10^3/uL (0.3-2.7); MONOS% (MANUAL) 7 % (2-9); MYELOCYTES# (MANUAL) 0.15 x10^3/uL (0-0); MYELOCYTES% (MANUAL) 1 % (0-0); SEG#(MANUAL) 10.95 x10^3/uL (1.8-6.8); SEGS% (MANUAL) 73 % (42-75)
[2020-05-22 04:52] LABS: <PLATELET ESTIMATE> ADEQUATE; <PLT MORPHOLOGY> NORMAL PLT MORPH; <RBC MORPHOLOGY> NORMAL
[2020-05-22] MEDS: PANTOPRAZOLE 40MG TABLET PO SCH (05:44)
[2020-05-22] MEDS: DIAZEPAM 10 MG TABLET PO PRN (05:49)
[2020-05-22 07:15] VITALS: BP 98/63
[2020-05-22] MEDS: DOCUSATE 100 MG CAPSULE PO SCH (08:33)
[2020-05-22] MEDS: MULTIVITAMIN 1 TABLET PO SCH (08:34)
[2020-05-22] MEDS: THIAMINE 100MG TABLET PO SCH (08:34)
[2020-05-22] MEDS: FOLIC ACID 1 MG TABLET PO SCH (08:34)
[2020-05-22] MEDS: DRONABINOL 5 MG CAPSULE PO SCH (08:34)
[2020-05-22] MEDS ORDERED: OXYC5TAB3 PO (10:45)
[2020-05-22] MEDS ORDERED: LEVO750T6 PO (10:45)
== END 2020-05-22 12:30 | disposition home or self-care (01) | DRG 438 ==
LOC: ED 13:31 → EDIP 14:33 → 3N 15:26 → DCLOUNGE 05-22 12:12
PROVIDERS: ADMIT Internal Medicine; ATTEND Family Medicine
PROC: BF141ZZ Fluoroscopy of Gallbladder, Bile Ducts and Pancreatic Ducts using Low Osmolar Contrast (ICD-10-PCS; 2020-05-16)
PROC: 0F798ZZ Dilation of Common Bile Duct, Via Natural or Artificial Opening Endoscopic (ICD-10-PCS; principal; 2020-05-16 11:30)
DX: K85.10 Biliary acute pancreatitis without necrosis or infection (principal); J96.01 Acute respiratory failure with hypoxia; J44.0 Chronic obstructive pulmonary disease with (acute) lower respiratory infection; J90 Pleural effusion, not elsewhere classified; K80.70 Calculus of gallbladder and bile duct without cholecystitis without obstruction; E66.9 Obesity, unspecified; E78.00 Pure hypercholesterolemia, unspecified; E78.5 Hyperlipidemia, unspecified; I10 Essential (primary) hypertension; J20.9 Acute bronchitis, unspecified; K70.10 Alcoholic hepatitis without ascites; Z80.1 Family history of malignant neoplasm of trachea, bronchus and lung; Z87.891 Personal history of nicotine dependence; Z90.49 Acquired absence of other specified parts of digestive tract; Z68.39 Body mass index [BMI] 39.0-39.9, adult; Z88.5 Allergy status to narcotic agent; F99 Mental disorder, not otherwise specified; Z20.828 Contact with and (suspected) exposure to other viral communicable diseases
CPT/HCPCS: 36415; 71045; 74177; 74181; 74328; 80053; 80061; 80307; 81001; 83605; 83615; 83690; 84145; 85025; 87040; 87086; 87635; 93005; 96361; 96374; 96375; 96376; G0378; J1170; J2250; J2405; J2543; J2550; J2704; J3010; Q0167; Q9967; C1769; C9113; J0330; J2270; J7030; J7120